=== PATIENT | male | born 1970 | race Caucasian/White ===

== ENCOUNTER 2021-10-08 11:41 | Emergency (ER) | payer BC ==
[~2021-10-08] VITALS: Ht 170.2 cm; Wt 119.0 kg
[2021-10-08 11:56] VITALS: BP 136/85
[2021-10-08] MEDS ORDERED: ketorolac trometh. 30mg/ml inj. IM ONE (14:35)
[2021-10-08] MEDS ORDERED: orphenadrine citrate 60mg/2ml inj. IM ONE (14:35)
== END 2021-10-08 15:02 | disposition home or self-care (01) ==
LOC: ER 11:42
DX: M43.6 Torticollis (principal); M25.511 Pain in right shoulder; M54.2 Cervicalgia; Z88.0 Allergy status to penicillin; Z88.2 Allergy status to sulfonamides
CPT/HCPCS: 96372; 99284; J1885; J2360